=== PATIENT | female | born 1965 | race Caucasian/White ===

== ENCOUNTER 2017-11-10 07:30 | Inpatient (IN) | payer BC ==
[~2017-11-10 07:30] MED LIST: Buffered Lidocaine 0.9% SYRIN* 5 ML/SYR SYRINGE INTRADERM ONE; Dexamethasone TAB* 4 MG PO ONE; DiMENhydriNATE IV* 50 MG/ML VIAL IV PUSH PRN; Morphine INJ* 2 MG/ML 1 ML CARPUJECT IV PRN; Naloxone* 0.4 MG/ML 1 ML VIAL IV PRN; Ondansetron INJ* 2 MG/ML VIAL ONE; PROCHLORPERAZINE INJ 5 MG/ML 2 ML VIAL IV PRN; Scopolamine 1.5 mg* PATCH TRANSDERM ONE; oxyCODONE/Acetamin 5/325 MG* TAB PO PRN
[2017-11-10] MEDS ORDERED: fentaNYL* 50 MCG/ML 2 ML VIAL (100 MCG VIAL) ONE ×2 (08:08→13:29)
[2017-11-10] MEDS ORDERED: Atracurium* 10 MG/ML 10 ML VIAL ONE (08:08)
[2017-11-10] MEDS ORDERED: Midazolam* 1 MG/ML 5 ML VIAL (5 MG) ONE (08:09)
[2017-11-10] MEDS ORDERED: Ondansetron ODT TAB* 4 MG ONE (08:17)
[2017-11-10] MEDS ORDERED: Dexamethasone TAB* 4 MG ONE (08:18)
[2017-11-10] MEDS ORDERED: ceFAZolin 2 GM PREMIX (*) 0 GM/0 ML BAG IVPB ONE (08:18)
[2017-11-10] MEDS ORDERED: Scopolamine 1.5 mg* PATCH ONE (08:18)
[2017-11-10] MEDS ORDERED: ceFOXitin(*) 1 GM VIAL ONE (08:23)
[2017-11-10] MEDS ORDERED: ceFOXitin 2 GM IVPREMIX* 2 GM/50 ML BAG IVPB ONE (09:00)
[2017-11-10] MEDS ORDERED: VASOPRESSIN 20 UNITS/ML 1 ML VIAL ONE (10:51)
[2017-11-10] MEDS ORDERED: Lidocaine 1% INJ* 10 MG/ML 30 ML SDV ONE (11:01)
[2017-11-10] MEDS ORDERED: Propofol* 10 MG/ML 20 ML BTL IV PUSH ONE (13:16)
[2017-11-10] MEDS ORDERED: PROCHLORPERAZINE INJ 5 MG/ML 2 ML VIAL ONE (13:16)
[2017-11-10] MEDS ORDERED: Ketorolac INJ* 30 MG/ML 1 ML VIAL ONE (13:16)
[2017-11-10] MEDS ORDERED: Bupivacaine 0.5% PF 10 ML VIAL INJ ONE (13:16)
[2017-11-10] MEDS ORDERED: Phenylephrine INJ* 10 MG/ML 1 ML VIAL (10 MG) ONE (13:17)
[2017-11-10] MEDS ORDERED: HYDROcodone/ACETAMIN 5-325 MG* 1 TAB PO PRN (13:19)
[2017-11-10] MEDS: fentaNYL* 50 MCG/ML 2 ML VIAL (100 MCG VIAL) IV PRN ×2 (13:32→14:24)
[2017-11-10] MEDS: Acetaminophen TAB* 325 MG PO PRN (21:12)
[2017-11-11 05:44] LABS: ABS Basophils 0 10^3/ul (0-0.2); ABS Eosinophils 0 10^3/ul (0-0.6); ABS Lymphocytes 1.6 10^3/ul (1.0-4.8); ABS Monocytes 0.9 10^3/ul (0-0.8); ABS Neutrophils 9.7 10^3/ul (1.5-7.7); ABS Nucleated RBC 0 10^3/ul; Eosinophil % 0.1 % (0-6); Hematocrit 32 % (35-47); Hemoglobin 10.8 g/dl (12.0-16.0); Lymphocyte % 13.3 % (25-47); Mean Corpuscular HGB Conc 34 g/dl (31-36); Mean Corpuscular Hemoglobin 31 pg (27-31); Mean Corpuscular Volume 92 fL (80-97); Mean Platelet Volume 8.5 um3 (7.4-10.4); Nucleated Red Blood Cells % 0; Platelet Count 221 10^3/ul (150-450); Red Blood Count 3.46 10^6/ul (4.0-5.4); Red Cell Distribution Width 14 % (10.5-15); White Blood Count 12.3 10^3/ul (3.5-10.8)
[2017-11-11] MEDS: Omeprazole CAP* 20 MG PO SCH (07:31)
[2017-11-11] MEDS: Docusate CAP* 100 MG PO PRN (07:31)
--- NOTE | 2017-11-11 08:20 | SURGPN ---
Subjective - Introduction -: Mrs Yates is a 52 y/o lady, with Uterine prolapse/Cystocele Admitted on: [11/10/17] Patient's surgical date: 11/10/17 Procedure completed: Total vaginal hysterectomy and anterior colporrhaphy - Medications -: Active Medications Generic Name Dose Route Start Last Admin Trade Name Freq PRN Reason Stop Dose Admin Acetaminophen 650 mg 11/10/17 13:19 11/10/17 21:12 Tylenol Tab* PO 650 mg Q4H PRN Administration Pain Or Temperature >101 F Hydrocodone Bitart/Acetaminophen 1 tab 11/10/17 13:19 11/10/17 16:02 [place] 5-325 Tab* PO 1 tab Q4H PRN Administration PAIN - MODERATE Docusate Sodium 100 mg 11/11/17 07:21 11/11/17 07:31 Colace Cap* PO 100 mg BID PRN Administration CONSTIPATION Lactated Ringer's 1,000 mls @ 125 mls/hr 11/10/17 14:00 11/11/17 07:25 Lactated Ringers 1000 Ml Bag* IV 125 mls/hr PER RATE JOHN Administration Omeprazole 20 mg 11/11/17 09:00 11/11/17 07:31 Prilosec Cap* PO 20 mg QAM JOHN Administration Pharmacy Profile Note 1 note 11/13/17 06:00 Scopolamine Patch Remove* PATCH OFF 11/13/17 06:01 ONCE ONE - Comments Comments: Patient is awake in no distress, denies chest pain, nausea/vomiting, denies shortness of breath. States her pain is well controlled with po meds. Objective - Objective -: Last Vital Signs 11/10/17 11/10/17 11/10/17 08:33 13:20 13:25 Temperature 97.3 F 97.5 F Pulse Rate 78 86 70 Respiratory 16 21 16 Rate Blood Pressure 135/80 127/78 125/85 (mmHg) O2 Sat by Pulse 97 99 98 Oximetry 11/10/17 11/10/17 11/10/17 13:30 13:32 13:45 Temperature Pulse Rate 66 59 Respiratory 19 16 17 Rate Blood Pressure 134/71 142/81 (mmHg) O2 Sat by Pulse 99 99 Oximetry 11/10/17 11/10/17 11/10/17 13:54 14:00 14:15 Temperature Pulse Rate 56 53 Respiratory 18 18 16 Rate Blood Pressure 136/85 150/85 (mmHg) O2 Sat by Pulse 100 95 Oximetry 11/10/17 11/10/17 11/10/17 14:24 14:30 14:45 Temperature 97.3 F Pulse Rate 80 59 Respiratory 16 13 Rate Blood Pressure 142/80 142/94 (mmHg) O2 Sat by Pulse 93 96 Oximetry 11/10/17 11/10/17 11/10/17 15:08 15:17 16:02 Temperature 97.6 F 97.6 F Pulse Rate 55 50 Respiratory 16 16 18 Rate Blood Pressure 131/68 131/68 (mmHg) O2 Sat by Pulse 100 98 Oximetry 11/10/17 11/10/17 11/10/17 16:32 17:00 17:04 Temperature 97.9 F 98.2 F Pulse Rate 55 69 Respiratory 16 16 16 Rate Blood Pressure 130/61 120/64 (mmHg) O2 Sat by Pulse 95 94 Oximetry 11/10/17 11/10/17 11/10/17 18:10 19:15 19:27 Temperature 97.9 F Pulse Rate 86 Respiratory 16 16 16 Rate Blood Pressure 128/60 (mmHg) O2 Sat by Pulse 95 Oximetry 11/10/17 11/10/17 11/11/17 21:07 23:01 00:35 Temperature 98.0 F 98.2 F Pulse Rate 58 68 Respiratory 18 16 Rate Blood Pressure 116/56 113/60 (mmHg) O2 Sat by Pulse 97 98 98 Oximetry 11/11/17 11/11/17 03:14 07:12 Temperature 98.1 F 97.9 F Pulse Rate 80 91 Respiratory 16 18 Rate Blood Pressure 117/57 130/58 (mmHg) O2 Sat by Pulse 95 94 Oximetry Laboratory Results - last 24 hr 11/11/17 05:15 WBC 12.3 H RBC 3.46 L Hgb 10.8 L Hct 32 L MCV 92 MCH 31 MCHC 34 RDW 14 Plt Count 221 MPV 8.5 Neut % (Auto) 79.1 Lymph % (Auto) 13.3 L [place] % (Auto) 7.3 H Eos % (Auto) 0.1 Baso % (Auto) 0.2 Absolute Neuts (auto) 9.7 H Absolute Lymphs (auto) 1.6 Absolute Monos (auto) 0.9 H Absolute Eos (auto) 0 Absolute Basos (auto) 0 Absolute Nucleated RBC 0 Nucleated RBC % 0 - Intake and Output -: Intake & Output 11/09/17 11/10/17 11/11/17 11/12/17 06:59 06:59 06:59 06:59 Intake Total 4751 997 Output Total 2820 Balance 1931 997 Weight 173 lb Intake: IV Fluids 3591 997 LR 3591 997 Oral 1160 Output: Galvan 2800 Estimated Blood Loss 20 ADLs: Meal Record Start: 11/10/17 13: 54 Freq: Status: Active Protocol: Created 11/10/17 13:54 [id number] (Rec: 11/10/17 13:54 [id number] SSU-C02) Intake and Output Start: 11/10/17 13: 54 Freq: DAILY@0600,1400,2200 Status: Active Protocol: Created 11/10/17 13:54 [id number] (Rec: 11/10/17 13:54 [id number] SSU-C02) Document 11/10/17 21:00 [id number] (Rec: 11/10/17 22:00 [id number] SSU-C07) Document 11/10/17 22:00 [id number] (Rec: 11/10/17 22:12 [id number] SSU-M18) Document 11/11/17 05:33 [id number] (Rec: 11/11/17 05:35 [id number] SSU-M17) Surgical Physical Exam - Comments -: Lungs-CTA b/l CV-RRR Abdomen-soft, NT. ND, normal bowel sounds. Vaginal packing removed no bleeding or discharge noted, vaginal incision is C/D/ I. Assessment and Plan - Assessment -: POD1 post TVH anterior repair. - Plan Surgical Plan of Care: Advance Diet, Increase Activity, Continue Pain Management - Plan DC galvan this afternoon and monitor voiding and PVR X2, Discontinue IV Additional Comments: Plan to remove galvan catheter this afternoon and monitor voiding and PVR.
[2017-11-11] MEDS: Acetaminophen TAB* 325 MG PO PRN ×2 (10:38→22:03)
[2017-11-12] MEDS: Docusate CAP* 100 MG PO PRN (07:35)
[2017-11-12] MEDS: Omeprazole CAP* 20 MG PO SCH (07:35)
[2017-11-12 07:41] VITALS: BP 139/73
[2017-11-12] MEDS ORDERED: Simethicone TAB* 80 MG TAB.CHEW PO PRN (08:47)
--- NOTE | 2017-11-12 09:00 | SURGPN ---
Subjective - Introduction -: Admitted on: [11/10/17] Patient's surgical date: 11/10/17 Procedure completed: Total vaginal hysterectomy and bladder repair - Medications -: Active Medications Generic Name Dose Route Start Last Admin Trade Name Freq PRN Reason Stop Dose Admin Acetaminophen 650 mg 11/10/17 13:19 11/11/17 22:03 Tylenol Tab* PO 650 mg Q4H PRN Administration Pain Or Temperature >101 F Hydrocodone Bitart/Acetaminophen 1 tab 11/10/17 13:19 11/10/17 16:02 [place] 5-325 Tab* PO 1 tab Q4H PRN Administration PAIN - MODERATE Docusate Sodium 100 mg 11/11/17 07:21 11/12/17 07:35 Colace Cap* PO 100 mg BID PRN Administration CONSTIPATION Omeprazole 20 mg 11/11/17 09:00 11/12/17 07:35 Prilosec Cap* PO 20 mg QAM JOHN Administration Pharmacy Profile Note 1 note 11/13/17 06:00 Scopolamine Patch Remove* PATCH OFF 11/13/17 06:01 ONCE ONE Simethicone 80 mg 11/12/17 08:47 Mylicon Tab* PO Q6H PRN Bloating - Comments Comments: Patient is tolerating a regular diet with + flatus and bowel movement, ambulating and voiding without difficulty. Pain is well controlled with PO meds. Objective - Objective -: Vital Signs - 24 hr 11/11/17 11/11/17 11/11/17 10:53 15:12 16:00 Temperature 97.7 F 97.4 F Pulse Rate 64 95 Respiratory 18 18 Rate Blood Pressure 134/60 108/53 (mmHg) O2 Sat by Pulse 98 97 97 Oximetry 11/11/17 11/11/17 11/11/17 17:16 19:55 20:00 Temperature 97.6 F Pulse Rate 78 Respiratory 15 18 Rate Blood Pressure 125/72 (mmHg) O2 Sat by Pulse 97 99 Oximetry 11/11/17 11/12/17 11/12/17 23:22 01:18 03:19 Temperature 98.1 F 98.3 F Pulse Rate 82 74 Respiratory 16 16 Rate Blood Pressure 107/58 121/71 (mmHg) O2 Sat by Pulse 96 96 95 Oximetry 11/12/17 11/12/17 07:15 07:42 Temperature 97.9 F Pulse Rate 73 Respiratory 16 16 Rate Blood Pressure 139/73 (mmHg) O2 Sat by Pulse 96 96 Oximetry - Intake and Output -: Intake & Output 11/10/17 11/11/17 11/12/17 11/13/17 06:59 06:59 06:59 06:59 Intake Total 4751 5766 990 Output Total 2820 5447 1450 Balance 1931 319 -460 Weight 173 lb Intake: IV Fluids 3591 2956 990 LR 3591 2956 990 Oral 1160 2810 Output: Urine 2500 1450 Vo 2800 2900 Post Void Residual 47 Estimated Blood Loss 20 Other: # Bowel Movements 1 1 Estimated Stool Amount Small # Voids 3 ADLs: Meal Record Start: 11/10/17 13: 54 Freq: Status: Active Protocol: Created 11/10/17 13:54 [id number] (Rec: 11/10/17 13:54 [id number] SSU-C02) Document 11/11/17 10:06 [id number] (Rec: 11/11/17 10:06 [id number] SSU-M17) Document 11/11/17 13:35 [id number] (Rec: 11/11/17 13:35 [id number] SSU-M17) Document 11/11/17 19:58 [id number] (Rec: 11/11/17 19:59 [id number] SSU-M17) Intake and Output Start: 11/10/17 13: 54 Freq: DAILY@0600,1400,2200 Status: Active Protocol: Created 11/10/17 13:54 [id number] (Rec: 11/10/17 13:54 [id number] SSU-C02) Document 11/10/17 21:00 [id number] (Rec: 11/10/17 22:00 [id number] SSU-C07) Document 11/10/17 22:00 [id number] (Rec: 11/10/17 22:12 [id number] SSU-M18) Document 11/11/17 05:33 [id number] (Rec: 11/11/17 05:35 [id number] SSU-M17) Document 11/11/17 11:10 [id number] (Rec: 11/12/17 02:51 [id number] SSU-M17) Document 11/11/17 11:31 [id number] (Rec: 11/11/17 11:32 [id number] [facility]) Document 11/11/17 13:57 [id number] (Rec: 11/11/17 13:57 [id number] [facility]) Document 11/11/17 19:52 [id number] (Rec: 11/11/17 19:52 [id number] [facility]) Document 11/11/17 22:00 [id number] (Rec: 11/11/17 22:04 [id number] [facility]) Document 11/11/17 22:58 [id number] (Rec: 11/11/17 22:58 [id number] [facility]) Document 11/12/17 03:20 [id number] (Rec: 11/12/17 03:20 [id number] [facility]) Document 11/12/17 05:20 [id number] (Rec: 11/12/17 05:20 [id number] [facility]) Document 11/12/17 07:11 [id number] (Rec: 11/12/17 07:11 [id number] [facility]) Document 11/12/17 08:35 [id number] (Rec: 11/12/17 08:35 [id number] U-C01) Surgical Physical Exam - Comments -: Lungs-CTA b/l CV-RRR Abdomen-soft, NT, ND, NABS VE- incision c/d/i no discharge. Assessment and Plan - Assessment -: POD day # 2 post Total vaginal hysterectomy and bladder repair, patient is stable for discharge. - Plan Surgical Plan of Care: Discharge Planning, Discharge - Discharge instructions reviewed with patient and typed instructions for patient to follow.
[2017-11-13] MEDS ORDERED: Scopolamine PATCH Remove* 1 NOTE MISC PATCH OFF ONE (06:00)
--- NOTE | 2017-11-21 14:37 | OP ---
DATE OF OPERATION: 11/10/17 - ROOM #332 DATE OF : 63 SURGEON: Vernon Burch MD LANGUAGE PATHOLOGIST: Dr. Ramirez. ANESTHESIA: Spinal. PRE-OP DIAGNOSES: Grade 3 uterine prolapse and grade 4 midline cystocele. POST-OP DIAGNOSES: Grade 3 uterine prolapse and grade 4 midline cystocele. OPERATIVE PROCEDURE: Total vaginal hysterectomy with anterior bladder repair. ESTIMATED BLOOD LOSS: Minimal. SPECIMENS SENT TO PATHOLOGY: Uterus and cervix. FLUIDS: She received 2300 cc of IV crystalloid fluid. URINE OUTPUT: Clear at 700 cc. FINDINGS: Exam under anesthesia revealed a grade 4 midline cystocele with a grade 3 uterine prolapse. No rectocele or enterocele noted on exam. She had a small anteverted uterus and no adnexal masses were palpable bilaterally. Intraoperatively, the uterus was small, normal shaped with no apparent lesions. Normal fallopian tubes were noted; however, the ovaries were not well visualized. Prior to the procedure, the risks, benefits, indications, and alternatives of the procedure were reviewed with the patient and informed consent was obtained. DESCRIPTION OF PROCEDURE: The patient was taken to the operating room where she had an IV running. She then underwent a spinal anesthetic without complications. She was then placed in the dorsal lithotomy position, prepped and draped in usual sterile fashion. At this point, a Vo catheter was inserted into the patient's urethra and the bladder was drained of clear urine. A weighted speculum was placed into the vagina and the cervix was grasped with a single-tooth tenaculum. The cervix was then injected circumferentially with 1% lidocaine solution. The cervix was then circumferentially incised with a scalpel, and the bladder was dissected off the pubovesical cervical fascia anteriorly with a sponge stick and Metzenbaum scissors. The posterior cul-de- sac was then entered sharply. The same procedure was performed posteriorly and the posterior cul-de-sac entered sharply without difficulty. At this point, a Mary clamp was placed over the uterosacral ligaments on either side. These were then transected and suture ligated with 0 Vicryl suture. Hemostasis was assured. The cardinal ligaments were then clamped on both sides, transected and suture ligated in a similar fashion. The uterine arteries at the broad ligament were then serially clamped with Mary clamps, transected and suture ligated on both sides. Excellent hemostasis was visualized. Both cornua were clamped with Mary clamps, transected, and the uterus was delivered. These pedicles were then suture ligated with excellent hemostasis with 0 Polysorb sutures. The peritoneum was then closed with a pursestring suture of 3- 0 Vicryl, after which we then proceeded with anterior bladder repair. The mid anterior aspect of the vaginal mucosa was incised superiorly up to 1 cm just below the urethral opening. Prior to incising the vaginal mucosa, it was infiltrated with lidocaine and incised with Metzenbaum scissors. The bladder was then mobilized away from the vaginal mucosa using blunt and sharp dissection. We then proceeded to perform a plication of the vaginal mucosa and fascia over the bladder using 3-0 Polysorb sutures in an interrupted fashion. This was followed with a Soo plication with 3-0 Polysorb sutures. The bladder was then noted to be in optimal position after anterior repair. We then proceeded to close the vaginal mucosa with 3-0 Polysorb sutures in a running fashion. The vaginal cuff angles were closed with [id number] stitches of 0 Vicryl on both sides and transfixed to the cardinal and uterosacral ligament. The remainder of the vaginal cuff was closed with figure- of-eight stitches of 0 Polysorb suture in an interrupted fashion. All instruments were then removed from the patient's vagina and the vagina was then packed with a 1-inch Betadine packing. The Vo catheter was left in place. The patient was taken out of the dorsal lithotomy position and awakened from spinal. She was then taken to the recovery room in stable condition. Sponge, lap, and needle counts were correct x2. [id number]/[facility] #: [id number] [facility]
--- NOTE | 2017-11-21 20:53 | DS ---
DISCHARGE SUMMARY: DATE OF ADMISSION: 11/10/17 DATE OF DISCHARGE: 11/12/17 HOSPITAL COURSE: Mrs. Yates is a 52-year-old lady who was admitted to the hospital on 11/10/17 for grade 3 uterine prolapse and grade 4 midline cystocele. On the date of admission, she underwent a total vaginal hysterectomy with anterior colporrhaphy, bladder repair without any incident. She was then transferred to the recovery room area in stable condition and then to the surgical floor. On postoperative day #1, the patient's vital signs were stable. She was afebrile. She was tolerating regular diet and p.o. medications. Her Vo catheter was removed in the evening on postop day #1 after which the patient voided and had postvoid residuals measured, which were within normal limits. On postop day #2 in the morning, the patient had remained stable, afebrile, ambulating, voiding without difficulty, tolerating p.o. medications with good control of her pain with p.o. meds. She was therefore discharged home and discharged instructions were reviewed with the patient along with medications on discharge. She was then scheduled to have a followup appointment at my office in 1 week after her surgery. [id number]/[facility] #: [id number] CHRISTINE
== END 2017-11-12 10:20 | disposition home or self-care (01) | DRG 513 ==
LOC: AA 08:15 → EDSTATUS 09:45 → SSU 15:08
PROVIDERS: ADMIT Obstetrics & Gynecology; ATTEND Obstetrics & Gynecology
PROC: 0JQC0ZZ Repair Pelvic Region Subcutaneous Tissue and Fascia, Open Approach (ICD-10-PCS; 2017-11-10)
PROC: 0UT97ZZ Resection of Uterus, Via Natural or Artificial Opening (ICD-10-PCS; principal; 2017-11-10 09:45)
DX: N81.3 Complete uterovaginal prolapse (principal); N94.10 Unspecified dyspareunia; K21.9 Gastro-esophageal reflux disease without esophagitis; M06.9 Rheumatoid arthritis, unspecified; K44.9 Diaphragmatic hernia without obstruction or gangrene; F17.210 Nicotine dependence, cigarettes, uncomplicated; Z90.49 Acquired absence of other specified parts of digestive tract; Z98.51 Tubal ligation status; Z80.3 Family history of malignant neoplasm of breast; Z83.3 Family history of diabetes mellitus
CPT/HCPCS: 36415; 85025; 88305; A9270-GY; J0690; J0694; J0780; J1885; J2250; J2704; J3010; J8540